=== PATIENT | female | born 1950 | race Caucasian/White ===

== ENCOUNTER → 2016-10-20 | Outpatient (CLI) | payer OTHER ==
[~2016-10-20] MED LIST: EVISTA PO; LIPITOR 20 MG T20 M1 PO; PREVACID30 MG PO; PROZAC20 MG PO
--- NOTE | ~2016-10-20 | EXE ---
[facility] [place] [address] STRESS ECHOCARDIOGRAM Name: JOHNATHAN ALVARADO Room #: REG Marcelina#: [id number] Admission: 10/20/16 Attend Phys: Eric Sims MD Discharge: Date of : 50 Date of Service: 10/23/16 1016 Report #: [id number] THIS REPORT FOR: //name// APPROVED REPORT Exam: Stress Echocardiogram Indication: Chest pain Patient Location: Out-Patient Stress Nurse: Delaney Corbett RN Room #: Echo lab Status: routine HR: 69 bpm Medical History Medical History: Hyperlipidemia Allergies: Sulpha Cardiac Risk Factors: Hyperlipidemia, FHX of CAD Exercise History: Sedentary Procedure The patient underwent an Exercise Stress Test using the Armand Protocol. Blood pressure, heart rate, and EKG were monitored. An Echocardiogram was performed by apprentice technician in four stages in quad fashion. At peak stress, four selected images were obtained and placed side by side with resting images for comparison. Stress Test Details Stress Test: Exercise stress testing was performed using a Armand protocol. HR Resting HR: 69 bpm Max Heart Rate (APMHR): 155 bpm Max HR Achieved: 129 bpm Target HR (85% APMHR): 131 bpm % of APMHR: 83 Recovery HR: 86 bpm HR response to stress: Normal HR response to stress BP Resting BP: 107/80 mmHg Max BP: 172/62 mmHg Recovery BP: 140/62 mmHg ECG Resting ECG: Sinus Rhythm Stress ECG: Sinus Rhythm [facility] [address] [place] [address] STRESS ECHOCARDIOGRAM Name: JOHNATHAN ALVARADO Room #: REG [facility]#: [id number] Admission: 10/20/16 Attend Phys: Eric Sims MD Discharge: Date of : 50 Date of Service: 10/23/16 1016 Report #: [id number] Recovery ECG: Sinus Rhythm Clinical Reason for Termination: Dyspnea, Leg pain Stress Symptoms: Dyspnea, Leg Fatigue Exercise duration: 5 min 53 sec Highest Stage Achieved: Stage 2: 2.5 mph at 12% grade. Exercise capacity: 7.2 METs Overall Exercise Capacity for Age: Average Stress ECG Conclusion 1. SUBJECTIVELY NEGATIVE FOR ISCHEMIA 2. ELECTROCARDIOGRAPHICALLY NEGATIVE FOR ISCHEMIA 3. DECREASED FUNCTIONAL CAPACITY Pre-Stress Echo The resting Echocardiogram showed normal left ventricular contractility with an estimated Ejection Fraction of about >55%. Normal wall motion in all segments on baseline images. Post-Stress Echo The stress Echocardiogram showed normal left ventricular contractility with an estimated Ejection Fraction of about 65-70%. Normal augmentation of wall motion in all segments on post stress images. Clinical Normal augmentation of myocardial wall segments using a 17 segment model. No clinical or ECG evidence for ischemia. Conclusion Clinical Response: Non-ischemic Exercise Capacity: Below Average Stress ECG Response: Non-ischemic Stress Echo Images: Non-ischemic 1. LOW RISK STUDY AT THIS HEART RATE AND DOUBLE PRODUCT No prior study available for comparison. Other Information Study Quality: Good [facility] [address] [place] [address] STRESS ECHOCARDIOGRAM Name: JOHNATHAN ALVARADO Room #: REG [facility]#: [id number] Admission: 10/20/16 Attend Phys: Eric Sims MD Discharge: Date of : 50 Date of Service: 10/23/16 1016 Report #: [id number] <Conclusion> 1. LOW RISK STUDY AT THIS HEART RATE AND DOUBLE PRODUCT <ELECTRONICALLY SIGNED> By: Pool Mcguire MD 10/23/16 1016 1016 1016 Pool Mcguire MD /INF
--- NOTE | ~2016-10-20 | 2DMMODE ---
[facility] [employer] [address] 2 D/M-MODE ECHOCARDIOGRAM Name: JOHNATHAN ALVARADO Garrett Room #: REG [facility]#: [id number] Admission: 10/20/16 Attend Phys: Eric Sims MD Discharge: Date of : 50 Date of Service: 10/20/16 1813 Report #: [id number] THIS REPORT FOR: //name// APPROVED REPORT Study performed: 10/20/2016 10:10:29 EXAM: Comprehensive 2D, Doppler, and color-flow Echocardiogram Patient Location: Echo lab Other Information Study Quality: Adequate Risk Factors: Cardiac Risk Factors: Hyperlipidemia Indications Chest Pain 2D Dimensions RVDd: 32.66 mm LVEF(%): 75.63 (>50%) IVSd: 11.45 (7-11mm) LVOT Diam: 17.10 (18-24mm) LVDd: 40.38 mm PWd: 9.28 (7-11mm) LVDs: 22.66 (25-40mm) Aortic Root: 29.64 mm IVC: 20.00 mm Uriarte's LVEF: 75.63 % Volumes Left Atrial Volume (Systole) Single Plane 4CH: 21.28 mL Single Plane 2CH: 28.23 mL LA ESV Index: 15.00 mL/m2 Aortic Valve AoV Peak Harrison.: 1.03 m/s AO Peak Gr.: 4.27 mmHg LVOT Max P.54 mmHg LVOT Max V: 0.80 m/s AYLA Vmax: 1.77 cm2 Mitral Valve E/A Ratio: 0.8 MV Decel. Time: 276.58 ms MV E Max Harrison.: 0.53 m/s MV A Harrison.: 0.66 m/s [facility] [address] [place] [address] 2 D/M-MODE ECHOCARDIOGRAM Name: JOHNATHAN ALVARADO Room #: [facility]#: [id number] Admission: 10/20/16 Attend Phys: Eric Sims MD Discharge: Date of : 50 Date of Service: 10/20/16 1813 Report #: [id number] MV PHT: 80.21 ms IVRT: 101.50 ms Pulmonary Valve PV Peak Harrison.: 0.89 m/s PV Peak Gr.: 3.15 mmHg Pulmonary Vein P Vein S: 0.59 m/s P Vein A: 0.27 m/s P Vein D: 0.32 m/s P Vein S/D Ratio: 1.84 Tricuspid Valve TR Peak Harrison.: 2.53 m/s RAP Estimate: 5.00 mmHg TR Peak Gr.: 25.57 mmHg PA Pressure: 30.00 mmHg Left Ventricle The left ventricle is normal size. There is normal LV segmental wall motion. There is normal left ventricular wall thickness. The left ventricular systolic function is normal. The left ventricular ejection fraction is within the normal range. LVEF is 60-65%. Grade I - abnormal relaxation pattern. Right Ventricle The right ventricle is normal size. The right ventricular systolic function is normal. Atria The left atrium size is normal. The right atrium size is normal. Aortic Valve The aortic valve is normal in structure. No aortic regurgitation is present. There is no aortic valvular stenosis. Mitral Valve The mitral valve is normal in structure. There is no mitral valve regurgitation noted. No evidence of mitral valve stenosis. Tricuspid Valve The tricuspid valve is normal in structure. There is no tricuspid valve stenosis. Trace to mild tricuspid regurgitation. Pulmonic Valve The pulmonary valve is normal in structure. There is no pulmonic valvular regurgitation. [address] [address] 2 D/M-MODE ECHOCARDIOGRAM Name: JOHNATHAN ALVARADO Garrett Room #: REG [facility]#: [id number] Admission: 10/20/16 Attend Phys: Eric Sims MD Discharge: Date of : 50 Date of Service: 10/20/16 1813 Report #: [id number] Great Vessels The aortic root is normal in size. IVC is normal in size and collapses >50% with inspiration. Pericardium There is no pericardial effusion. <Conclusion> The left ventricular ejection fraction is within the normal range. There is normal LV segmental wall motion. LVEF is 60-65%. Grade I - abnormal relaxation pattern. The aortic valve is normal in structure. No aortic regurgitation or stenosis The mitral valve is normal in structure. No insufficiency Pulmonary artery could not be reliably ascertained. There is no pericardial effusion. <ELECTRONICALLY SIGNED> By: Sloan Cueto MD, [facility] 10/20/161812 12 12 Sloan Cueto MD, FAC /INF
== END ==
LOC: CV 10-16 07:59
DX: R07.9 Chest pain, unspecified (principal)

== ENCOUNTER → 2016-12-04 | Outpatient (CLI) | payer OTHER | LOC: RAD 01:34 | DX: Z12.31 Encounter for screening mammogram for malignant neoplasm of breast (principal) ==

== ENCOUNTER → 2016-12-13 | Outpatient (CLI) | payer OTHER | LOC: RAD 08:29 | DX: N63 Unspecified lump in breast (principal) ==

== ENCOUNTER → 2017-04-24 | Outpatient (CLI) | payer OTHER | LOC: RAD 09:20 | DX: R05 Cough (principal) ==

== ENCOUNTER → 2017-07-03 | Outpatient (CLI) | payer OTHER | LOC: RAD 08:56 | DX: J84.10 Pulmonary fibrosis, unspecified (principal) ==

== ENCOUNTER → 2018-02-26 | Outpatient (CLI) | payer OTHER | LOC: RAD 11:44 | DX: Z12.31 Encounter for screening mammogram for malignant neoplasm of breast (principal) ==

== ENCOUNTER → 2019-11-18 | Outpatient (CLI) | payer OTHER, MEDICARE | LOC: BC 12:57 | PROVIDERS: ATTEND Family Medicine | DX: Z12.31 Encounter for screening mammogram for malignant neoplasm of breast (principal) ==

== ENCOUNTER → 2019-11-21 | Outpatient (CLI) | payer OTHER, MEDICARE | LOC: SJCVCIMAG | PROVIDERS: ATTEND Family Medicine | DX: R07.9 Chest pain, unspecified (principal); Z79.82 Long term (current) use of aspirin; Z79.899 Other long term (current) drug therapy; Z88.2 Allergy status to sulfonamides; Z88.8 Allergy status to other drugs, medicaments and biological substances ==

== ENCOUNTER → 2020-07-19 | Outpatient (CLI) | payer OTHER, MEDICARE | LOC: MRI 09:04 | PROVIDERS: ATTEND Family Medicine | DX: R92.2 Inconclusive mammogram (principal) ==

== ENCOUNTER → 2021-03-14 | Outpatient (CLI) | payer OTHER, MEDICARE | LOC: BC 10:44 | PROVIDERS: ATTEND Family Medicine | DX: Z12.31 Encounter for screening mammogram for malignant neoplasm of breast (principal); N64.89 Other specified disorders of breast ==